=== PATIENT | female | born 1940 | race Caucasian/White ===

== ENCOUNTER 2020-08-09 12:02 | Outpatient (REF) | payer MEDICARE, SELFPAY ==
--- NOTE | ~2020-08-09 | MM_ITS ---
EXAMINATION: MM SCREENING DIGITAL BREAST TOMOSYNTHESIS, LEFT CLINICAL INFORMATION: Right mastectomy 2007. Due for yearly. COMPARISON: Mammography: 08/05/2018, 07/29/2018, 05/14/2017, 03/20/2015 TECHNIQUE: Digital breast tomosynthesis is performed in both the craniocaudal and mediolateral oblique views along with computer-aided detection (CAD). Synthesized 2D images are generated from the tomosynthesis. Additional left CC and left exaggerated CC views are provided. Exam optimized to patient capabilities, patient in wheelchair. FINDINGS: There are scattered areas of fibroglandular density (ACR BI-RADS breast composition Category b). Breast tissue composition borders on heterogeneously dense. There is no developing density or interval mass or architectural abnormality. Prominent venous drainage upper left breast and axilla is stable from prior studies. Skin contours are smooth. No skin thickening or coarsening of the Jesse's ligaments. No adenopathy. There are numerous punctate and coarse round and rim calcifications as well as vascular calcifications again seen. There are new loosely grouped round calcifications mid central 12:00 position for which patient will be recalled for additional imaging with magnification views. MM/MM tomosynthesis screening LT IMPRESSION: New loosely grouped round calcifications mid central 12:00 position. ASSESSMENT: BI-RADS 0: Incomplete - Need Additional Imaging Evaluation RECOMMENDATION: 1. Additional views of the left breast (magnification CC, magnification ML). 2. Radiology department staff will contact the patient for additional imaging. This patient's information was entered into a reminder system with a target due date for their next mammogram.
== END 2020-08-09 12:03 | disposition home or self-care (01) ==
LOC: HO.MAMMO 12:02
PROVIDERS: PCP Internal Medicine; Visit Provider Internal Medicine
DX: Z12.31 Encounter for screening mammogram for malignant neoplasm of breast (principal)
CPT/HCPCS: 77063; 77067

== ENCOUNTER 2020-08-22 14:47 | Outpatient (REF) | payer MEDICARE, SELFPAY ==
--- NOTE | ~2020-08-22 | MM_ITS ---
EXAMINATION: MM DIAGNOSTIC DIGITAL MAMMOGRAPHY, LEFT CLINICAL INFORMATION: Recall from screening for new loosely grouped calcifications mid central 12:00 left breast. Prior history right mastectomy for breast cancer 2007. COMPARISON: Mammography: 08/09/2020, 08/05/2018 (diagnostic), 03/31/2018. TECHNIQUE: Digital mammography is performed in the following views: Magnification CC, magnification ML. FINDINGS: There are scattered areas of fibroglandular density (ACR BI-RADS breast composition Category b). Breast tissue composition borders on heterogeneously dense. The additional views confirm loosely grouped calcifications central 12:00 position mid depth, over 10 in number. These represent new finding from prior magnification views 2018. Stereotactic sampling is recommended. Results and recommendation are discussed with the patient and her daughter at time of visit. Stereotactic sampling is recommended. If patient is unable to lie prone, sampling could be performed at local outside facility using upright stereotactic unit. Results and recommendation called to office ([facility]) for Dr. Arnold on 08/22/2020. MM/MM added views LT IMPRESSION: New calcifications central 12:00 left breast mid depth. ASSESSMENT: BI-RADS 4: Suspicious RECOMMENDATION: Stereotactic biopsy left breast calcifications. This patient's information was entered into a reminder system with a target due date for their next mammogram.
== END 2020-08-22 14:48 | disposition home or self-care (01) ==
LOC: HO.MAMMO 14:47
PROVIDERS: Visit Provider Internal Medicine
DX: R92.1 Mammographic calcification found on diagnostic imaging of breast (principal)
CPT/HCPCS: 77065

== ENCOUNTER → 2020-09-16 08:12 | Outpatient (BNVA) | payer MEDICARE, SELFPAY | PROVIDERS: PCP Internal Medicine; Visit Provider Surgery | DX: D05.12 Intraductal carcinoma in situ of left breast (principal); I20.8 Other forms of angina pectoris | CPT/HCPCS: 99202 ==

== ENCOUNTER 2020-10-01 11:30 | Inpatient (IN) | payer MEDICARE, SELFPAY ==
[2020-09-26 13:41] VITALS: BP 128/60; PULSE 70; RESP 20; O2SAT 95; BMI 35.1
--- NOTE | 2020-09-26 14:01 | P.CONAN_ITS ---
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) Breast calcification, left (Acute) Past Medical History Medical History Angina pectoris Aortic stenosis Arthritis Back pain Breast calcification, left CHF (congestive heart failure) Chronic renal insufficiency COVID-19 vaccine series completed Diabetes Ductal carcinoma in situ (DCIS) of breast Elevated cholesterol GERD (gastroesophageal reflux disease) History of atrial fibrillation History of snoring HTN (hypertension) Transfusion of blood product refused for jehovah's witness reason Family History Family history of problems with anesthesia: No Surgical History Surgical History Hx of coronary angioplasty Hx of right mastectomy History of Problems with Anesthesia: No Social History Social History Are you a primary pet care worker to a significant other at home: No Do you presently have visiting nurse or other home services: No Patient Tobacco Use Status: Never used Tobacco Use of substances other than those prescribed or required for medical reasons: No Have you been hit, kicked, punched, or otherwise hurt by someone within the past year? If so, by whom?: No Are you DNR?: Yes Advance Directives: Yes Advance Directives Information Provided: Yes Advance Directives on File: Yes Advance Directives Date on File: 09/26/20 Recently lost weight without trying: No Eating poorly because of decreased appetite: No Nutrition Risks: Surgical patient >75years Poor oral hygiene: No Narrative Narrative: No recent illness. Rare cough and nasal congestion d/t allergies. No CP/SOB with minimal activity. Mostly in wheel chair d/t back pain. Euvolemic at PAT Meds Allergies Allergy/AdvReac Type Severity Reaction Status Date / Time lisinopril [LISINOPRIL] AdvReac Intermediate Cough Verified 09/25/20 10:11 Chphwll-Dgt-Gyw Reductase AdvReac Intermediate extreme Verified 09/25/20 10:10 Inhibitor muscle [[id number] REDUCTASE pain in INHIBITOR] hips and legs Home Medications Medication Instructions Recorded Confirmed Last Taken Type allopurinol 300 mg tablet 300 mg PO DAILY 09/16/20 09/25/20 Unknown History aspirin 81 mg tablet,delayed 81 mg PO DAILY 09/16/20 09/25/20 Unknown History release atorvastatin 10 mg tablet 10 mg PO DAILY 09/16/20 09/25/20 Unknown History blood sugar diagnostic (OneTouch #10 ea 09/16/20 09/16/20 Unknown History Ultra Test) fluticasone propionate 50 1 spray INTRANASAL BID 09/16/20 09/25/20 Unknown History mcg/actuation nasal spray,suspension furosemide 40 mg tablet 40 mg PO BID 09/16/20 09/25/20 Unknown History insulin glargine 100 unit/mL (3 40 unit SUBCUT BEDTIME 09/16/20 09/25/20 Unknown History mL) subcutaneous pen (Lantus Solostar U-100 Insulin) insulin lispro 100 unit/mL 6 - 10 unit SUBCUT TID 09/16/20 09/25/20 Unknown History subcutaneous pen (Humalog KwikPen (U-100) Insulin) isosorbide mononitrate 60 mg 60 mg PO QAM 09/16/20 09/25/20 10/01/20 06:00 History tablet,extended release 24 hr lancets (Catalyst Repository SystemsTouch UltraSoft #100 ea 09/16/20 09/16/20 Unknown History Lancets) losartan 25 mg tablet 25 mg PO DAILY 09/16/20 09/25/20 Unknown History metoprolol tartrate 100 mg tablet 100 mg PO BID 09/16/20 09/25/20 10/01/20 06:00 History nitroglycerin 0.4 mg sublingual 0.4 mg SUBLINGUAL NEEDED PRN 09/16/20 09/25/20 Unknown History tablet pen needle, diabetic 31 gauge x #50 ea 09/16/20 09/16/20 Unknown History 3/16 (BD Ultra-Fine Mini Pen Needle) pen needle, diabetic 32 gauge x #50 ea 09/16/20 09/16/20 Unknown History (BD Ultra-Fine Sylwia Pen Needle) coenzyme Q10 200 mg capsule (Co 200 mg PO DAILY 09/25/20 09/25/20 Unknown History Q-10) Exam Exam Date and Time: September 26, 2020 1401 Height,Weight and Vital Signs: Vital Signs Pulse Rate 70 09/26/20 13:41 Respiratory Rate 09/26/20 13:41 Blood Pressure 128/60 09/26/20 13:41 Pulse Oximetry 95 09/26/20 13:41 Pulse Rate 70 09/26/20 13:41 Respiratory Rate 20 09/26/20 13:41 Blood Pressure 128/60 09/26/20 13:41 Pulse Oximetry 95 09/26/20 13:41 Pertinent Lab Results Pertinent Lab Results: Lab Results 09/26/20 09/26/20 Range/Units 14:58 14:58 WBC 8.1 (4.8-10.8) X10*3/uL RBC 3.85 L (4.20-5.50) X10*6/uL Hgb 11.8 L (12.0-16.0) g/dl Hct 34.8 L (37-47) % MCV 90.4 (80-98) fL MCH 30.6 (27.0-33.0) pg MCHC 33.9 (31.0-35.0) g/dl RDW 15.0 (11.0-16.0) % Plt Count 191 (160-400) X10*3/uL MPV 10.6 (9.4-12.3) fL Absolute Nucleated RBC 0.000 (0.0-0.012) X10*3/uL Nucleated RBC % (auto) 0.0 (0.0-0.2) /100WBC Sodium 139 (135-145) mmol/L Potassium 4.1 (3.3-5.1) mmol/L Chloride 103 (96-108) mmol/L Carbon Dioxide 27 (22-29) mmol/L Anion Gap 13 (12-20) BUN 46 H (9-16) mg/dL Creatinine 1.19 (0.5-1.4) mg/dL Estim Creat Clear Calc 38.6 Estimated GFR 44 Random Glucose 96 (60-115) mg/dL Calcium 9.7 (8.4-10.2) mg/dL Narrative Narrative: EKG 09/2020 afib Low voltage QRS Poor R wave progression ECHO 04/2019 LA is moderately to severely dilated Moderate to severe mitral annular calcification Miltral valve appears moderately thickened - reduced mobility of leaflets without any significant stenosis Trace to mild mitral regurg Aortic valve is trileaflet, moderately calcified Moderate aortic stenosis: mean gradient = 18, valve area = 1.1 Trace aoritc regurg LV size is normal LV systolic function is normal LVEF 55-60% No RWMA Unable to assess diastolic function d/t afib Airway Mallampati Class: I TM Dist: >3cm Neck ROM: Full Loose/Missing/Broken Teeth: Yes (Molars pulled, 1 x silver cap left) Heart: irreg, +M Lungs: CTAB Other: Euvolemic, no edema, denies orthopnea Assessment and Plan Assessment Anesthesia Assessment: Anesthesia Plan Discussed and PAT Visit Final Anesthetic Review Family History of Problems with Anesthesia: No History of Problems with Anesthesia: No Documented by User: Viri Rodriguez MD 10/01/20 10:08 [facility] Past Medical History Medical History Angina pectoris Aortic stenosis Arthritis Back pain Breast calcification, left CHF (congestive heart failure) Chronic renal insufficiency COVID-19 vaccine series completed Diabetes Ductal carcinoma in situ (DCIS) of breast Elevated cholesterol GERD (gastroesophageal reflux disease) History of atrial fibrillation History of snoring HTN (hypertension) Transfusion of blood product refused for jehovah's witness reason Family History Family history of problems with anesthesia: Unobtainable Surgical History Surgical History Hx of coronary angioplasty Hx of right mastectomy Social History Social History Are you a primary pet care worker to a significant other at home: No Do you presently have visiting nurse or other home services: No Patient Tobacco Use Status: Never used Tobacco Use of substances other than those prescribed or required for medical reasons: No Have you been hit, kicked, punched, or otherwise hurt by someone within the past year? If so, by whom?: No Are you DNR?: Yes Advance Directives: Yes Advance Directives Information Provided: Yes Advance Directives on File: Yes Advance Directives Date on File: 09/26/20 Recently lost weight without trying: No Eating poorly because of decreased appetite: No Nutrition Risks: Surgical patient >75years Poor oral hygiene: No Narrative Narrative: No recent illness. Rare cough and nasal congestion d/t allergies. No CP/SOB with minimal activity. Mostly in wheel chair d/t back pain. Euvolemic at [facility] Cardiac assessment from [facility] read. Pt not a candidate for CABG and is optimized with medical management. Will proceed with knowledge of increased cardiac risk. Meds Allergies Allergy/AdvReac Type Severity Reaction Status Date / Time lisinopril [LISINOPRIL] AdvReac Intermediate Cough Verified 09/25/20 10:11 Lwjbyhk-Zxd-Xtq Reductase AdvReac Intermediate extreme Verified 09/25/20 10:10 Inhibitor muscle [[id number] REDUCTASE pain in INHIBITOR] hips and legs Home Medications Medication Instructions Recorded Confirmed Last Taken Type allopurinol 300 mg tablet 300 mg PO DAILY 09/16/20 09/25/20 Unknown History aspirin 81 mg tablet,delayed 81 mg PO DAILY 09/16/20 09/25/20 Unknown History release atorvastatin 10 mg tablet 10 mg PO DAILY 09/16/20 09/25/20 Unknown History blood sugar diagnostic (Catalyst Repository SystemsTouch #10 ea 09/16/20 09/16/20 Unknown History Ultra Test) fluticasone propionate 50 1 spray INTRANASAL BID 09/16/20 09/25/20 Unknown History mcg/actuation nasal spray,suspension furosemide 40 mg tablet 40 mg PO BID 09/16/20 09/25/20 Unknown History insulin glargine 100 unit/mL (3 40 unit SUBCUT BEDTIME 09/16/20 09/25/20 Unknown History mL) subcutaneous pen (Lantus Solostar U-100 Insulin) insulin lispro 100 unit/mL 6 - 10 unit SUBCUT TID 09/16/20 09/25/20 Unknown History subcutaneous pen (Humalog KwikPen (U-100) Insulin) isosorbide mononitrate 60 mg 60 mg PO QAM 09/16/20 09/25/20 10/01/20 06:00 History tablet,extended release 24 hr lancets ([employer] UltraSoft #100 ea 09/16/20 09/16/20 Unknown History Lancets) losartan 25 mg tablet 25 mg PO DAILY 09/16/20 09/25/20 Unknown History metoprolol tartrate 100 mg tablet 100 mg PO BID 09/16/20 09/25/20 10/01/20 06:00 History nitroglycerin 0.4 mg sublingual 0.4 mg SUBLINGUAL NEEDED PRN 09/16/20 09/25/20 Unknown History tablet pen needle, diabetic 31 gauge x #50 ea 09/16/20 09/16/20 Unknown History 3/16 (BD Ultra-Fine Mini Pen Needle) pen needle, diabetic 32 gauge x #50 ea 09/16/20 09/16/20 Unknown History (BD Ultra-Fine Sylwia Pen Needle) coenzyme Q10 200 mg capsule (Co 200 mg PO DAILY 09/25/20 09/25/20 Unknown History Q-10) Exam Airway Mallampati Class: II Assessment and Plan Assessment Anesthesia Assessment: Chart Reviewed Final Anesthetic Review Family History of Problems with Anesthesia: Unobtainable NPO: Yes ASA Class: III Final Preanesthetic Review: Meds/Allgs Chart Reviewed, Consent Obtained/Reviewed and Anes Risks/Benef Reviewed Patient Risk: Intermediate Procedure Risk: Low Anesthetic Plan Anesthetic Plan: GA Disposition: Standard PACU
[2020-09-26 15:14] LABS: Hematocrit 34.8 % (37-47); Hemoglobin 11.8 g/dl (12.0-16.0); Mean Corpuscular HGB Conc 33.9 g/dl (31.0-35.0); Mean Corpuscular Hemoglobin 30.6 pg (27.0-33.0); Mean Corpuscular Volume 90.4 fL (80-98); Mean Platelet Volume 10.6 fL (9.4-12.3); Platelet Count 191 X10*3/uL (160-400); Red Blood Count 3.85 X10*6/uL (4.20-5.50); White Blood Count 8.1 X10*3/uL (4.8-10.8)
[2020-09-26 15:38] LABS: Anion Gap 13 (12-20); Blood Urea Nitrogen 46 mg/dL (9-16); Calcium 9.7 mg/dL (8.4-10.2); Carbon Dioxide 27 mmol/L (22-29); Chloride 103 mmol/L (96-108); Creatinine Clr Calc Pharmacy 38.6; Estimated Glomerular Filt Rate 44; Glucose Random 96 mg/dL (60-115); Potassium 4.1 mmol/L (3.3-5.1); Sodium 139 mmol/L (135-145)
[2020-10-01] VITALS (19 sets, daily range): BP systolic 90–141; BP diastolic 32–80; PULSE 64–75; RESP 16–20; TEMP 36.3–36.6; O2SAT 94–100; BMI 35.1
[2020-10-01 08:22] LABS: Glucose, Whole Blood 114 mg/dL (60-115)
[2020-10-01 08:27] LABS: COVID-19 Test Negative (Negative)
[2020-10-01] MEDS: Lactated Ringers 1,000 ML 50 ML IVCONT (08:28)
--- NOTE | 2020-10-01 09:03 | MHC.SHP ---
Pre-Procedural Eval Section A Date of Service: 10/01/20 Section B Chief Complaint: Ductal carcinoma in situ (DCIS) of breast Allergies: Allergies Allergy/AdvReac Type Severity Reaction Status Date / Time lisinopril [LISINOPRIL] AdvReac Intermediate Cough Verified 09/25/20 10:11 Dyneyfm-Nfh-Eve Reductase AdvReac Intermediate extreme Verified 09/25/20 10:10 Inhibitor muscle [[id number] REDUCTASE pain in INHIBITOR] hips and legs Plan I have reviewed the history and physical and performed a pertinent physical examination on my patient. No changes have occurred unless specified.
--- NOTE | 2020-10-01 11:14 | W.PM.OPN ---
Operative Note Operative Note Date of Service: 10/01/20 Narrative: Preop diagnosis: DCIS, left breast Postop diagnosis: DCIS left breast Procedure: Simple mastectomy, left breast Surgeon: Jeremy Garcia MD retail event and sales assistant: TENISHA Preston The patient is an 79-year-old female who had undergone stereotactic biopsy in [place] recently for left breast calcifications. The path report had shown a DCIS of the left breast. She was therefore referred to me. I explained to her her options of lumpectomy followed possibly by radiation, and simple mastectomy. She had a previous mastectomy on the right breast for breast cancer in the past. She wanted to proceed with simple mastectomy. She understood technique of the procedure as well as the risks, benefits, and alternatives She was brought to the operating room and placed supine. She was placed under general anesthesia via laryngeal mask airway. The left breast was prepped draped in the usual sterile fashion. A surgical time-out was done. The patient received cefazolin 2 g IV preoperatively. I made an elliptical incision on the skin of the breast that included the nipple-areolar complex, with skin ellipse talar just to make sure that the resulting defect could be closed without tension, and that the previous biopsy site was included. The lateral and the lips medial to the mid axillary line. The incision was then deepened with electrocautery. We cauterized some subdermal veins that were encountered for hemostasis. I then used Cecilio skin retractors to lift up the superior flap in a direction perpendicular to the chest wall. With the electrocautery device, the breast tissue was dissected away from 1 end of the incision to the other, making sure that we weredeveloping flaps that were approximately about 5-10 mm thick. There seemed to also be a bloodless plane becoming evident as we proceeded with this dissection of the planes between the subcutaneous tissue and the breast itself. We proceeded to continue to deepen this dissection all the way to the pectoralis major with care being taken as to coagulate vessels as they were encountered to minimize blood loss. I then proceeded to identify the limits of dissection which would be the lateral border of the mid sternum medially, the anterior border of the latissimus dorsi laterally, the 2nd rib superiorly as well as the inframammary crease inferiorly. I therefore proceeded to continue to develop the superior flap all the way to the medial limit, and superior limit as well. I then proceeded to develop the lower flaps proceeding from the medial and the lateral and. This was achieved in the same fashion as earlier done with the superior flap. I proceeded to continue to deepen the dissection until the inframammary crease was reached. Both skin envelopes had therefore been completely developed superiorly as well as inferiorly. At this point therefore I was using the Gilmore retractors for retraction and had removed the the skin retractors. I proceeded to lift off the breast from the pectoralis major starting from the medial aspect. I developed this plane using electrocautery, lifting the breast tissue off of the muscle, including the plane of the fascia itself with the breast tissue. I developed this plane superficial to the muscle fibers of the pectoralis using electrocautery and blunt dissection, making sure that we were coagulating quantitative researcher vessels along the way. I developed this plane of dissection from medial and inferior going more laterally and superiorly. I continued with this dissection until I was able to reach the lateral edge of the pectoralis muscle. This was therefore the limit of our lateral dissection. I proceeded to therefore continue developed the plane from superior also above the fibers of the pectoralis major. I continued with this manner of dissection, using electrocautery as well as blunt dissection with the tip of the finger to lift up the breast tissue along with the fascia off of the pectoralis. This was continued all the way laterally until we reached the lateral margin of the pectoralis as well. We then proceeded to connect our planes from inferior to superior at the edge of the pectoralis until the entire breast was completely . I marked the medial collateral aspects of the breast for orientation We then proceeded to observe from a stasis. There was note of some oozing on the muscle fibers of the pectoralis so we had to carefully control this with electrocautery to make sure that we had good hemostasis. I copiously irrigated as well. We observed for hemostasis. Once hemostasis was confirmed I proceeded to position a #7 FREDERICK drain along the inferior flap going medially to the superior flap. This drain came out through a small stab incision in the lateral part of the inferior flap This drain was secured to the skin with nylon 3-0 sutures. We then proceeded to reappose the subcutaneous layer and subdermal layer with interrupted simple Dexon 3-0 sutures. Skin closure was achieved with a running Dexon 4-0 subcuticular running stitch. The incisionwas then infiltrated with Marcaine 0.5% for postop analgesia. Dressings were applied along with a binder and the procedure was completed. The patient tolerated procedure well with no complication noted. Initial and final counts of sponges and instruments were correct. Estimated blood loss about 75 cc. The patient was then extubated without difficulty and transferred to the recovery room with stable vital signs.
--- NOTE | 2020-10-01 11:24 | P.BOP_ITS ---
Brief Operative Note Date of Service: 10/01/20 Pre-op diagnosis: DCIS left breast Post-op diagnosis: same Procedure: Simple mastectomy left breast Surgeon: Jeremy Garcia MD Anesthesia: GLMA Was an Ammonia Print Operator used for this Procedure?: Yes Ammonia Print Operator: Miley Preston Estimated blood loss (mL): 75 Pathology: other (Left breast) Condition: stable Disposition: PACU
--- NOTE | 2020-10-01 12:35 | P.CONIM_ITS ---
History of Present Illness Data of Consult Service Date: 10/01/20 Requesting physician: Jeremy Garcia Primary Care Provider: Radha Damon MD HPI Reason for consult: Medical management 79 year old women admitted by general surgery and is status post left breast mastectomy. She had previous right breast mastectomy. 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 She was in post-op recovery unit. She had very minimal complaints of pain. Her blood pressure was on the softer side but improved after IV fluids. Review of Systems Review of Systems: Denies any recent fever chills or decrease in appetite respiratory denies any shortness of breath coverage production cardiovascular denied gastrointestinal denies any dysphagia abdominal pain nausea vomiting or diarrhea genitourinary denies any dysuria frequency or hematuria musculoskeletal denies any joint pain or swelling neuropsych denies any weakness or seizures all other systems reviewed are negative [facility] Medical History Angina pectoris Aortic stenosis Arthritis Back pain Breast calcification, left CHF (congestive heart failure) Chronic renal insufficiency COVID-19 vaccine series completed Diabetes Ductal carcinoma in situ (DCIS) of breast Elevated cholesterol GERD (gastroesophageal reflux disease) History of atrial fibrillation History of snoring HTN (hypertension) Transfusion of blood product refused for tenriism reason Pertinent family history: Unknown patient unable to give full hx as she was just post op Surgical History Hx of coronary angioplasty Hx of right mastectomy Social History Are you a primary director career services to a significant other at home: No Do you presently have visiting nurse or other home services: No Patient Tobacco Use Status: Never used Tobacco Use of substances other than those prescribed or required for medical reasons: No Have you been hit, kicked, punched, or otherwise hurt by someone within the past year? If so, by whom?: No Are you DNR?: Yes Advance Directives: Yes Advance Directives Information Provided: Yes Advance Directives on File: Yes Advance Directives Date on File: 09/26/20 Recently lost weight without trying: No Eating poorly because of decreased appetite: No Nutrition Risks: Surgical patient >75years Poor oral hygiene: No Meds Allergies Allergy/AdvReac Type Severity Reaction Status Date / Time lisinopril [LISINOPRIL] AdvReac Intermediate Cough Verified 09/25/20 10:11 Kjkoldz-Gyk-Bnl Reductase AdvReac Intermediate extreme Verified 09/25/20 10:10 Inhibitor muscle [[id number] REDUCTASE pain in INHIBITOR] hips and legs Active Medications: Current Medications Generic Name Dose Route Start Last Admin Trade Name Freq PRN Reason Stop Dose Admin Acetaminophen 650 mg 10/01/20 11:29 Acetaminophen 325 Mg Tablet PO Q6H PRN Pain, Mild (Pain Scale 1-3) Al Hydroxide/Mg Hydroxide 30 ml 10/01/20 11:29 Magnesium Hydrox/Alum Hydrox 30 Ml Oral.Susp PO Q4H PRN Heartburn/Nausea Allopurinol 300 mg 10/02/20 09:00 Allopurinol 300 Mg Tablet PO DAILY DONTRELL Dextrose 25 gm 10/01/20 11:35 Dextrose 50 % 25 Gm/50 Ml Vial IVPUSH Q15M PRN per Hypoglycemia Standing Ord. Protocol Docusate Sodium 100 mg 10/01/20 11:29 Docusate Sodium 100 Mg Capsule PO DAILY PRN Constipation Fentanyl 50 mcg 10/01/20 10:10 Fentanyl Citrate/Pf 100 Mcg/2 Ml Vial IVPUSH Q5M PRN Pain, Severe (Pain Scale 7-10) Protocol Fentanyl 25 mcg 10/01/20 10:10 Fentanyl Citrate/Pf 100 Mcg/2 Ml Vial IVPUSH Q5M PRN Pain, Moderate (Pain Scale 4-6 Protocol Fluticasone Propionate 1 spray 10/01/20 21:00 Fluticasone Propionate Nasal 16 Gm [place] NOSTRIL-B BID DONTRELL Glucose 15 gm 10/01/20 11:35 Glucose Gel 15 Gm Gel..Gram. PO Q15M PRN per Hypoglycemia Standing Ord. Protocol Heparin Sodium (Porcine) 5,000 unit 10/02/20 11:30 Heparin Sodium,Porcine 5,000 Unit/Ml Vial SUBCUT Q12H DONTRELL Lactated Ringer's 1,000 mls @ 50 mls/hr 10/01/20 07:45 10/01/20 08:28 Lr IVCONT 50 mls/hr .Q20H DONTRELL Administration Sodium Chloride 1,000 mls @ 80 mls/hr 10/01/20 11:30 Ns IVCONT .[id number] [facility] Insulin Human Lispro 0 unit 10/01/20 16:30 Insulin Lispro 100 Unit/Ml 3 Ml Vial SUBCUT QIDACHS [facility] Protocol Isosorbide Mononitrate 60 mg 10/01/20 11:45 Isosorbide Mononitrate 60 Mg Tab.Er.24h PO DAILY [facility] Protocol Losartan Potassium 25 mg 10/02/20 09:00 Losartan Potassium 25 Mg Tablet PO DAILY [facility] Protocol Metoprolol Tartrate 100 mg 10/01/20 21:00 Metoprolol Tartrate 100 Mg Tablet PO BID [facility] Protocol Morphine Sulfate 2 mg 10/01/20 10:13 Morphine Sulfate 2 Mg/Ml Cartridge IVPUSH Q5M PRN Pain, Moderate (Pain Scale 4-6 Protocol Morphine Sulfate 4 mg 10/01/20 11:29 Morphine Sulfate 2 Mg/Ml Cartridge IVPUSH Q4H PRN Pain, Severe (Pain Scale 7-10) Protocol Nitroglycerin 0.4 mg 10/01/20 11:36 Nitroglycerin 0.4 Mg Tab.Subl SUBLINGUAL Q5M PRN Chest Pain Ondansetron HCl 4 mg 10/01/20 11:29 Ondansetron Hcl 4 Mg/2 Ml Vial IVPUSH Q8H PRN Nausea and Vomiting Oxycodone HCl 10 mg 10/01/20 10:10 Oxycodone Hcl Immed Release 5 Mg Tablet PO ONCE PRN Pain, Severe (Pain Scale 7-10) Oxycodone HCl 5 mg 10/01/20 10:10 Oxycodone Hcl Immed Release 5 Mg Tablet PO ONCE PRN Pain, Severe (Pain Scale 7-10) Oxycodone HCl 5 mg 10/01/20 11:29 Oxycodone Hcl Immed Release 5 Mg Tablet PO Q4H PRN Pain, Moderate (Pain Scale 4-6 Sodium Chloride 3 ml 10/01/20 16:00 0.9 % Sodium Chloride Flush 3 Ml Syringe IVFLUSH QSHIFT [facility] Home Medications Medication Instructions Recorded Confirmed Last Taken Type allopurinol 300 mg tablet 300 mg PO DAILY 09/16/20 09/25/20 Unknown History aspirin 81 mg tablet,delayed 81 mg PO DAILY 09/16/20 09/25/20 Unknown History release atorvastatin 10 mg tablet 10 mg PO DAILY 09/16/20 09/25/20 Unknown History blood sugar diagnostic (OneTouch #10 ea 09/16/20 09/16/20 Unknown History Ultra Test) fluticasone propionate 50 1 spray INTRANASAL BID 09/16/20 09/25/20 Unknown History mcg/actuation nasal spray,suspension furosemide 40 mg tablet 40 mg PO BID 09/16/20 09/25/20 Unknown History insulin glargine 100 unit/mL (3 40 unit SUBCUT BEDTIME 09/16/20 09/25/20 Unknown History mL) subcutaneous pen (Lantus Solostar U-100 Insulin) insulin lispro 100 unit/mL 6 - 10 unit SUBCUT TID 09/16/20 09/25/20 Unknown History subcutaneous pen (Humalog KwikPen (U-100) Insulin) isosorbide mononitrate 60 mg 60 mg PO QAM 09/16/20 09/25/20 10/01/20 06:00 History tablet,extended release 24 hr lancets (OneTouch UltraSoft #100 ea 09/16/20 09/16/20 Unknown History Lancets) losartan 25 mg tablet 25 mg PO DAILY 09/16/20 09/25/20 Unknown History metoprolol tartrate 100 mg tablet 100 mg PO BID 09/16/20 09/25/20 10/01/20 06:00 History nitroglycerin 0.4 mg sublingual 0.4 mg SUBLINGUAL NEEDED PRN 09/16/20 09/25/20 Unknown History tablet pen needle, diabetic 31 gauge x #50 ea 09/16/20 09/16/20 Unknown History 3/16 (BD Ultra-Fine Mini Pen Needle) pen needle, diabetic 32 gauge x #50 ea 09/16/20 09/16/20 Unknown History 5/32 (BD Ultra-Fine [place]ia Pen Needle) coenzyme Q10 200 mg capsule (Co 200 mg PO DAILY 09/25/20 09/25/20 Unknown History Q-10) Physical Exam Vital Signs and Narrative: Vital Signs: Last Vital Signs Temp 97.4 F 10/01/20 11:33 Pulse 68 10/01/20 12:18 Resp 18 10/01/20 12:18 BP 99/35 L 10/01/20 12:18 Pulse Ox 95 10/01/20 12:18 Body Mass Index 35.1 Appearing in no acute distress head is normocephalic atraumatic eyes pupils are PERRLA sclera is anicteric mouth throat mucous membranes are intact and moist neck is supple no lymphadenopathy, no JVD noted lung sounds are clear to auscultation heart regular rate rhythm, clear S1, S2 positive bowel sounds, abdomen is soft, nontender neuro patient is alert x3, no focal deficits Results Labs CBC and Chem 7: 09/26/20 14:58 09/26/20 14:58 Labs: Laboratory Results - last 24 hr 10/01/20 10/01/20 08:03 08:18 POC Glucose 114 COVID-19 (ADELE) Negative COVID-19 Clin Com See Note Assessment and Plan (1) Angina at rest: Status: Acute 79 year old women s/p left breast mastectomy secondary to ductal carcinoma in situ Mastectomy management as per surgical team pain control Hypertension Stable blood continue losartan Diabetes sliding scale ADA diet Angina Continue BB DVT prophylaxis with heparin
[2020-10-01] MEDS: oxyCODONE HCl Immed Release 5 MG TABLET PO (12:41)
[2020-10-01] MEDS: Morphine Sulfate 2 MG/ML CARTRIDGE IVPUSH (12:41)
--- NOTE | 2020-10-01 14:34 | PM.EVENT ---
Event Note Date of Service: 10/01/20 Event Note: Seen postop - she underwent simple mastectomy earlier for DCIS Says she is comfortable Looks well Seems to have good pain control Dressings dry FREDERICK drain - with thick, red blood, about 20 cc Stable vital signs Doing well postop likely home jason if with good pain control will need VNA Daughter Magdalena updated [phone]
--- NOTE | 2020-10-01 14:55 | PM.EVENT ---
Event Note Date of Service: 10/01/20 Event Note: addendum to consult note by ESME Wang, 10/01/20: I interviewed and examined the patient. I discussed their presentation and management with the mid-level provider. I reviewed the consult and agree with the documentation, with the following additions and corrections: 79yo F on surgical service POD#0 simple mastectomy for DCIS L breast. Has hx of R mastectomy for CA. PMHx hx for AF not on AC due to GI bleed hx, CAD s/p PCI x3, aortic stenosis, CHF, CKD3, DM2, HLD, HTN . Vital Signs Pulse Rate 70 09/26/20 13:41 Respiratory Rate 20 09/26/20 13:41 Blood Pressure 128/60 09/26/20 13:41 Pulse Oximetry 95 09/26/20 13:41 Temperature 98 F 10/01/20 14:30 Pulse Rate 70 10/01/20 14:48 Respiratory Rate 20 10/01/20 14:30 Blood Pressure 115/56 L 10/01/20 14:48 Pulse Oximetry 97 10/01/20 14:30 pt in NAD, lungs clear, RRR 3/6 systolic murmur at base, abd soft, no ext edema # CAD # CHF # HTN - continue furosemide, Imdur, metoprolol, losartan, statin, ASA when OK with surgical team # CKD3 - monitor SCr, avoid nephrotoxins # DM2 - correction-dose lispro, glargine once eating
[2020-10-01 16:58] LABS: Glucose, Whole Blood 215 mg/dL (60-115)
[2020-10-01] MEDS: 0.9 % Sodium Chloride 1,000 ML 80 ML IVCONT (17:45)
[2020-10-01] MEDS: Insulin Lispro 100 UNIT/ML 3 ML VIAL SUBCUT ×2 (17:45→22:18)
[2020-10-01] MEDS: 0.9 % Sodium Chloride Flush 3 ML SYRINGE IVFLUSH ×2 (17:48→22:20)
--- NOTE | 2020-10-01 18:11 | PC.NURSE ---
1643 patients blood pressure 90/80. Patient asymptomatic. Dr. Domingo made aware. Order placed for 1L NS to be given.
[2020-10-01 21:28] LABS: Glucose, Whole Blood 340 mg/dL (60-115)
[2020-10-01] MEDS: Fluticasone Propionate Nasal 16 GM SPRAY 1 SPRAY NOSTRIL-B (22:19)
[2020-10-02] VITALS (7 sets, daily range): BP systolic 94–138; BP diastolic 44–62; PULSE 66–76; RESP 16–18; TEMP 36.4–36.9; O2SAT 93–100
[2020-10-02] MEDS: 0.9 % Sodium Chloride 1,000 ML 80 ML IVCONT (05:07)
[2020-10-02 06:23] LABS: MANUAL DIFF FLAG NO
[2020-10-02 06:45] LABS: Basophils Percent Auto 0.2 % (0-2); Hematocrit 32.4 % (37-47); Hemoglobin 10.6 g/dl (12.0-16.0); Imm Gran Abs Auto 0.05 X10*3/uL (0.00-0.03); Imm Gran Pct Auto 0.5 % (0.0-0.4); Lymphocytes Absolute Auto 1.1 X10*3/uL (1.2-4.9); Lymphocytes Percent Auto 11.8 % (20-40); Mean Corpuscular HGB Conc 32.7 g/dl (31.0-35.0); Mean Corpuscular Hemoglobin 30.5 pg (27.0-33.0); Mean Corpuscular Volume 93.4 fL (80-98); Mean Platelet Volume 11.7 fL (9.4-12.3); Monocytes Absolute Auto 0.6 X10*3/uL (0.1-1.2); Monocytes Percent Auto 6.2 % (2-11); Neutrophils Absolute Auto 7.6 X10*3/uL (2.0-8.3); Neutrophils Percent Auto 81.3 % (45-73); Platelet Count 156 X10*3/uL (160-400); Red Blood Count 3.47 X10*6/uL (4.20-5.50); White Blood Count 9.3 X10*3/uL (4.8-10.8)
[2020-10-02 07:16] LABS: Anion Gap 14 (12-20); Blood Urea Nitrogen 45 mg/dL (9-16); Calcium 8.4 mg/dL (8.4-10.2); Carbon Dioxide 25 mmol/L (22-29); Chloride 102 mmol/L (96-108); Creatinine Clr Calc Pharmacy 37.7; Estimated Glomerular Filt Rate 42; Glucose Random 195 mg/dL (60-115); Sodium 136 mmol/L (135-145)
[2020-10-02 07:33] LABS: Glucose, Whole Blood 176 mg/dL (60-115)
--- NOTE | 2020-10-02 07:35 | PM.PNGS ---
Subjective Subjective Date of Service: 10/02/20 <Miley Preston PA-C - Last Filed: 10/02/20 07:41> 10/02/20 <Jeremy Garcia MD - Last Filed: 10/02/20 08:33> Interval history: Feels ok this morning. Having pain only when moving. Worried about blood sugars. <Miley Preston PA-C - Last Filed: 10/02/20 07:41> Physical Exam Vital Signs: Vital Signs: Last Vital Signs Temp 98.4 F 10/02/20 07:14 Pulse 70 10/02/20 07:14 Resp 18 10/02/20 07:14 BP 114/44 L 10/02/20 07:14 Pulse Ox 97 10/02/20 07:14 Body Mass Index 35.1 <Miley Preston PA-C - Last Filed: 10/02/20 07:41> Const: General: comfortable, no acute distress and alert <Miley Preston PA-C - Last Filed: 10/02/20 07:41> Orientation/consciousness: patient oriented x3 <Miley Preston PA-C - Last Filed: 10/02/20 07:41> Chest: Other: left mastectomy incision site clean, FREDERICK drain output serosanguineous <Miley Preston PA-C - Last Filed: 10/02/20 07:41> Resp: Effort & Inspection: normal respiratory effort <Miley Preston PA-C - Last Filed: 10/02/20 07:41> Cardio: Rate: regular rate <Miley Preston PA-C - Last Filed: 10/02/20 07:41> Skin: General skin exam: no rashes or lesions noted <Miley Preston PA-C - Last Filed: 10/02/20 07:41> Neuro: General: patient oriented x3 <KARTHIKEYAN Lopez Last Filed: 10/02/20 07:41> Extrem: General: Yes no clubbing, cyanosis or edema <KARTHIKEYAN Lopez Last Filed: 10/02/20 07:41> Procedures Date of Service Date of Service: 10/02/20 <Miley Preston PA-C - Last Filed: 10/02/20 07:41> Progress Note: A&P Assessment and plan (1) Ductal carcinoma in situ (DCIS) of breast: Status: Acute <Miley Preston PA-C - Last Filed: 10/02/20 07:41> (2) S/P mastectomy: Status: Acute <Miley Preston PA-C - Last Filed: 10/02/20 07:41> Assessment and Plan: No events overnight Good pain control She says she feels well FREDERICK drain with serosanguineous output Looks well Dressings dry Likely home later today or tomorrow Discussed with piano case and bench assembler regarding visiting nurse services Seen and examined - agree with TENISHA Preston <Jeremy Garcia MD - Last Filed: 10/02/20 08:33> Assessment and Plan: 79 year old female with DCIS left breast now POD #1 s/p left simple mastectomy. Doing well post op. Dressing c/d/i. FREDERICK drain with high serosanguineous output. Keep FREDERICK drain in place. AM labs reviewed. Likely discharge to home with VNA services tomorrow. Hospitalists following. <Miley Preston PA-C - Last Filed: 10/02/20 07:41> Fall Risk Details Current Medications: Current Medications Generic Name Dose Route Start Last Admin Trade Name Freq PRN Reason Stop Dose Admin Acetaminophen 650 mg 10/01/20 11:29 Acetaminophen 325 Mg Tablet PO Q6H PRN Pain, Mild (Pain Scale 1-3) Al Hydroxide/Mg Hydroxide 30 ml 10/01/20 11:29 Magnesium Hydrox/Alum Hydrox 30 Ml Oral.Susp PO Q4H PRN Heartburn/Nausea Allopurinol 300 mg 10/02/20 09:00 Allopurinol 300 Mg Tablet PO DAILY DONTRELL Dextrose 25 gm 10/01/20 11:35 Dextrose 50 % 25 Gm/50 Ml Vial IVPUSH Q15M PRN per Hypoglycemia Standing Ord. Protocol Docusate Sodium 100 mg 10/01/20 11:29 Docusate Sodium 100 Mg Capsule PO DAILY PRN Constipation Fluticasone Propionate 1 spray 10/01/20 21:00 10/01/20 22:19 Fluticasone Propionate Nasal 16 Gm [place] NOSTRIL-B 1 spray BID DONTRELL Administration Glucose 15 gm 10/01/20 11:35 Glucose Gel 15 Gm Gel..Gram. PO Q15M PRN per Hypoglycemia Standing Ord. Protocol Heparin Sodium (Porcine) 5,000 unit 10/02/20 11:30 Heparin Sodium,Porcine 5,000 Unit/Ml Vial SUBCUT Q12H [facility] Sodium Chloride 1,000 mls @ 80 mls/hr 10/01/20 11:30 10/02/20 05:07 Ns IVCONT 80 mls/hr .[id number] [facility] Administration Insulin Human Lispro 0 unit 10/01/20 16:30 10/01/20 22:18 Insulin Lispro 100 Unit/Ml 3 Ml Vial SUBCUT 2 unit QIDACHS [facility] Administration Protocol Isosorbide Mononitrate 60 mg 10/01/20 11:45 10/01/20 14:48 Isosorbide Mononitrate 60 Mg Tab.Er.24h PO Not Given DAILY [facility] Protocol Losartan Potassium 25 mg 10/02/20 09:00 Losartan Potassium 25 Mg Tablet PO DAILY [facility] Protocol Metoprolol Tartrate 100 mg 10/01/20 21:00 10/01/20 22:16 Metoprolol Tartrate 100 Mg Tablet PO Not Given BID [facility] Protocol Morphine Sulfate 4 mg 10/01/20 11:29 Morphine Sulfate 2 Mg/Ml Cartridge IVPUSH Q4H PRN Pain, Severe (Pain Scale 7-10) Protocol Nitroglycerin 0.4 mg 10/01/20 11:36 Nitroglycerin 0.4 Mg Tab.Subl SUBLINGUAL Q5M PRN Chest Pain Ondansetron HCl 4 mg 10/01/20 11:29 Ondansetron Hcl 4 Mg/2 Ml Vial IVPUSH Q8H PRN Nausea and Vomiting Oxycodone HCl 5 mg 10/01/20 11:29 Oxycodone Hcl Immed Release 5 Mg Tablet PO Q4H PRN Pain, Moderate (Pain Scale 4-6 Sodium Chloride 3 ml 10/01/20 16:00 10/01/20 22:20 0.9 % Sodium Chloride Flush 3 Ml Syringe IVFLUSH 3 ml QSHIFT [facility] Administration <Miley Preston PA-C - Last Filed: 10/02/20 07:41> Time Spent With Patient Time: Total time spent is greater than 50% in coordination of care (as documented) at patient's floor/unit and/or counseling patient: <Miley Preston PA-C - Last Filed: 10/02/20 07:41> Time with patient: 15 - 24 minutes <Miley Preston PA-C - Last Filed: 10/02/20 07:41> Quality Stroke Does the patient have a stroke diagnosis?: No <Miley Preston PA-C - Last Filed: 10/02/20 07:41> VTE Prior VTE?: No <Miley Preston PA-C - Last Filed: 10/02/20 07:41> VTE Risk Level:: Surgical - high <Miley Preston PA-C - Last Filed: 10/02/20 07:41> VTE Device Contraindication: N/A - Device Ordered <Miley Preston PA-C - Last Filed: 10/02/20 07:41> VTE Drug Contraindication: N/A - Med Ordered <Miley Preston PA-C - Last Filed: 10/02/20 07:41>
[2020-10-02] MEDS: Metoprolol Tartrate 100 MG TABLET PO (07:59)
[2020-10-02] MEDS: Insulin Lispro 100 UNIT/ML 3 ML VIAL SUBCUT ×2 (07:59→11:47)
[2020-10-02] MEDS: allopurinoL 300 MG TABLET PO (08:00)
[2020-10-02] MEDS: Fluticasone Propionate Nasal 16 GM SPRAY 1 SPRAY NOSTRIL-B (08:04)
--- NOTE | 2020-10-02 08:13 | HO.POSTANES ---
Post Anesthesia Evaluation Post Anesthesia Evaluation Vital Signs: Vital Signs Temp Pulse Resp BP Pulse Ox 10/02/20 07:59 70 114/44 L 10/02/20 07:14 98.4 F 70 18 114/44 L 97 10/02/20 03:39 97.8 F 73 18 94/55 L 100 10/01/20 23:43 97.7 F 72 18 134/57 L 99 10/01/20 22:16 75 112/46 L Anesthesia: General LMA Mental Status: Awake Pain Control: Satisfactory Nausea/Vomiting: None Hydration: Adequate Anesthesia-Related Issues: No Anes. Related Issues
[2020-10-02] MEDS: Insulin Glargine,Hum.rec.anlog 100 UNIT/ML 10 ML VIAL 20 UNIT SUBCUT (08:14)
[2020-10-02] MEDS: Lactated Ringers 1,000 ML 999 ML IV (08:15)
[2020-10-02 11:02] LABS: Glucose, Whole Blood 235 mg/dL (60-115)
--- NOTE | 2020-10-02 11:35 | P.PNIM_ITS ---
Subjective Subjective Date of Service: 10/02/20 Interval History: Minimal postop pain no dyspnea no chest pain no lightheadedness Review of Systems Review of Systems: Yes all other systems are reviewed and are negative Physical Exam Vital Signs: Vital Signs: Last Vital Signs Temp 97.5 F 10/02/20 11:18 Pulse 76 10/02/20 11:18 Resp 16 10/02/20 11:18 BP 104/52 L 10/02/20 09:49 Pulse Ox 96 10/02/20 11:18 Body Mass Index 35.1 Gen: in no acute distress HEENT: sclera anicteric, moist mucus membranes Neck: supple Lungs: clear to auscultation bilaterally Heart: regular rate and rhythm, 3/6 systolic murmur at base Abd: soft, non-tender, non-distended Ext: no edema Skin: warm/well-perfused Neuro: alert and oriented x3, no focal findings Psych: appropriate affect Objective Data Current Medications Generic Name Dose Route Start Last Admin Trade Name Freq PRN Reason Stop Dose Admin Acetaminophen 650 mg 10/01/20 11:29 Acetaminophen 325 Mg Tablet PO Q6H PRN Pain, Mild (Pain Scale 1-3) Al Hydroxide/Mg Hydroxide 30 ml 10/01/20 11:29 Magnesium Hydrox/Alum Hydrox 30 Ml Oral.Susp PO Q4H PRN Heartburn/Nausea Allopurinol 300 mg 10/02/20 09:00 10/02/20 08:00 Allopurinol 300 Mg Tablet PO 300 mg DAILY [facility]ONTRE[facility] Administration Dextrose 25 gm 10/01/20 11:35 Dextrose 50 % 25 Gm/50 Ml Vial IVPUSH Q15M PRN per Hypoglycemia Standing Ord. Protocol Docusate Sodium 100 mg 10/01/20 11:29 Docusate Sodium 100 Mg Capsule PO DAILY PRN Constipation Fluticasone Propionate 1 spray 10/01/20 21:00 10/02/20 08:04 Fluticasone Propionate Nasal 16 Gm [place] NOSTRIL-B 1 spray BID DONTRELL Administration Glucose 15 gm 10/01/20 11:35 Glucose Gel 15 Gm Gel..Gram. PO Q15M PRN per Hypoglycemia Standing Ord. Protocol Heparin Sodium (Porcine) 5,000 unit 10/02/20 11:30 Heparin Sodium,Porcine 5,000 Unit/Ml Vial SUBCUT Q12H [facility] Insulin Glargine 20 unit 10/02/20 09:00 10/02/20 08:14 Insulin Glargine,Hum.Rec.Anlog 100 Unit/Ml 10 Ml Vial SUBCUT 20 unit DAILY [facility] Administration Insulin Human Lispro 0 unit 10/01/20 16:30 10/02/20 07:59 Insulin Lispro 100 Unit/Ml 3 Ml Vial SUBCUT 2 unit QIDACHS [facility] Administration Protocol Isosorbide Mononitrate 60 mg 10/01/20 11:45 10/02/20 08:02 Isosorbide Mononitrate 60 Mg Tab.Er.24h PO Not Given DAILY [facility] Protocol Losartan Potassium 25 mg 10/02/20 09:00 10/02/20 08:02 Losartan Potassium 25 Mg Tablet PO Not Given DAILY [facility] Protocol Metoprolol Tartrate 100 mg 10/01/20 21:00 10/02/20 07:59 Metoprolol Tartrate 100 Mg Tablet PO 100 mg BID [facility] Administration Protocol Morphine Sulfate 4 mg 10/01/20 11:29 Morphine Sulfate 2 Mg/Ml Cartridge IVPUSH Q4H PRN Pain, Severe (Pain Scale 7-10) Protocol Nitroglycerin 0.4 mg 10/01/20 11:36 Nitroglycerin 0.4 Mg Tab.Subl SUBLINGUAL Q5M PRN Chest Pain Ondansetron HCl 4 mg 10/01/20 11:29 Ondansetron Hcl 4 Mg/2 Ml Vial IVPUSH Q8H PRN Nausea and Vomiting Oxycodone HCl 5 mg 10/01/20 11:29 Oxycodone Hcl Immed Release 5 Mg Tablet PO Q4H PRN Pain, Moderate (Pain Scale 4-6 Sodium Chloride 3 ml 10/01/20 16:00 10/02/20 08:00 0.9 % Sodium Chloride Flush 3 Ml Syringe IVFLUSH Not Given QSHIFT [facility] Labs CBC & Chem 7: 10/02/20 05:18 10/02/20 05:18 Labs: Laboratory Results - last 24 hr 10/01/20 10/01/20 10/02/20 16:47 21:22 05:18 MCV 93.4 MCH 30.5 MCHC 32.7 RDW 15.0 Plt Count 156 L MPV 11.7 Immature Gran % (Auto) 0.5 H Neut % (Auto) 81.3 H Lymph % (Auto) 11.8 L [place] % (Auto) 6.2 Eos % (Auto) 0.0 Baso % (Auto) 0.2 Lymph # (Auto) 1.1 L [place] # (Auto) 0.6 Eos # (Auto) 0.0 Baso # (Auto) 0.0 Abs Immat Gran (auto) 0.05 H Absolute Neuts (auto) 7.6 Absolute Nucleated RBC 0.000 Nucleated RBC % (auto) 0.0 Anion Gap Estim Creat Clear Calc Estimated GFR POC Glucose 215 H 340 H Random Glucose Calcium 10/02/20 10/02/20 10/02/20 05:18 07:17 10:53 MCV MCH MCHC RDW Plt Count MPV Immature Gran % (Auto) Neut % (Auto) Lymph % (Auto) [place] % (Auto) Eos % (Auto) Baso % (Auto) Lymph # (Auto) [place] # (Auto) Eos # (Auto) Baso # (Auto) Abs Immat Gran (auto) Absolute Neuts (auto) Absolute Nucleated RBC Nucleated RBC % (auto) Anion Gap 14 Estim Creat Clear Calc 37.7 Estimated GFR 42 POC Glucose 176 H 235 H Random Glucose 195 H D Calcium 8.4 D Assessment and Plan (1) S/P mastectomy: Status: Acute (2) Ductal carcinoma in situ (DCIS) of breast: Status: Acute Assessment and Plan: 79yo F on surgical service POD#1 simple mastectomy for DCIS L breast.? Has hx of R mastectomy for CA.? PMHx hx for AF not on AC due to GI bleed hx, CAD s/p PCI x3, aortic stenosis, CHF, CKD3, DM2, HLD, HTN # CAD # CHF # HTN - continue metoprolol; Imdur + losartan held for soft BP; will give 1L LR - continue statin; resume ASA when cleared by surgery # CKD3 - monitor SCr, avoid nephrotoxins # DM2 - correction-dose lispro, add back glargine 20 units [takes 40 units at home] # VTE ppx - [facility] Quality Stroke Does the patient have a stroke diagnosis?: No VTE Prior VTE?: No VTE Risk Level:: Surgical - high VTE Device Contraindication: N/A - Device Ordered VTE Drug Contraindication: N/A - Med Ordered
[2020-10-02] MEDS: Heparin Sodium,Porcine 5,000 UNIT/ML VIAL 5000 UNIT SUBCUT (11:47)
--- NOTE | 2020-10-02 11:53 | W.MHC.F2F ---
Service Date Service Date: 10/02/20 Encounter Date of encounter: 10/02/20 Reasons for Services Signs and symptoms assessed: Patient underwent mastectomy yesterday for DCIS, currently has a FREDERICK drain in place MD Overseeing Care: Jeremy Garcia Homebound: Leaving the home is medically contraindicated at this time without the asist of a device and/or another person due th the listed conditions above and below. Reason homebound: other (Status post mastectomy 10/01/20, with a FREDERICK drain in place) Certification: Based on the above findings, I certify that this patient is confined to the home and needs intermittent care home care, physical therapy and/or speech therapy, or continues to need occupational therapy. The patient is under my care, and I have initiated the establishment of the plan of care. The patient will be followed by a physician who will periodically review the plan of care.
--- NOTE | 2020-10-02 11:58 | MHC.CM.PN ---
IMM 10/02/20 Female S/P L Mastectomy. She lives w 3 adult children. Family assists with ADLs. Patient can walk short distances. Pt uses WC mostly. DP home with [facility] family will transport. Patient is discharged today.
--- NOTE | 2020-10-02 14:26 | PM.EVENT ---
Event Note Date of Service: 10/02/20 Event Note: She continues to feel well Says she has minimal pain Able to ambulate around the bed Has had stable vital signs Says she is ready to go home FREDERICK drain with much less output today She looks well Discussed with nursing staff and hospitalist service - patient seems ready to be discharged Her daughter Magdalena was in the room and says that she would prefer to bring the patient home today Patient discharged therefore with instructions to see me in the office next week to remove the FREDERICK drain
--- NOTE | 2020-10-02 14:29 | MHC.CM.PN ---
Patient has been medically cleared for dc to home today, with services. A referral has been made to [facility] and they have been notified of today's dc. Last IMM addressed this morning.
--- NOTE | 2020-10-03 12:50 | PM.DS ---
DS: Providers Provider Date of Service: 10/02/20 Date of admission: 10/01/20 11:30 Primary care physician: Radha Damon MD Attending physician on admission: Jeremy Garcia Consults: 10/01/20 11:29 Consult to Hospitalist Routine Consulting Provider: Hospitalist Reason For Exam: medical management Attending physician on discharge: Jeremy Garcia DS: Diagnosis Discharge Diagnosis (1) S/P mastectomy: Status: Acute (2) Ductal carcinoma in situ (DCIS) of breast: Status: Acute DS: Medications Discharge Medications Home Medications: Home Medications Medication Instructions Recorded Confirmed allopurinol 300 mg tablet 300 mg PO DAILY 09/16/20 09/25/20 aspirin 81 mg tablet,delayed 81 mg PO DAILY 09/16/20 09/25/20 release atorvastatin 10 mg tablet 10 mg PO DAILY 09/16/20 09/25/20 blood sugar diagnostic ([place] HoldingTouch #10 ea 09/16/20 09/16/20 Ultra Test) fluticasone propionate 50 1 spray INTRANASAL BID 09/16/20 09/25/20 mcg/actuation nasal spray,suspension furosemide 40 mg tablet 40 mg PO BID 09/16/20 09/25/20 insulin glargine 100 unit/mL (3 40 unit SUBCUT BEDTIME 09/16/20 09/25/20 mL) subcutaneous pen (Lantus Solostar U-100 Insulin) insulin lispro 100 unit/mL 6 - 10 unit SUBCUT TID 09/16/20 09/25/20 subcutaneous pen (Humalog KwikPen (U-100) Insulin) isosorbide mononitrate 60 mg 60 mg PO QAM 09/16/20 09/25/20 tablet,extended release 24 hr lancets ([place] HoldingTouch UltraSoft #100 ea 09/16/20 09/16/20 Lancets) losartan 25 mg tablet 25 mg PO DAILY 09/16/20 09/25/20 metoprolol tartrate 100 mg tablet 100 mg PO BID 09/16/20 09/25/20 nitroglycerin 0.4 mg sublingual 0.4 mg SUBLINGUAL NEEDED PRN 09/16/20 09/25/20 tablet pen needle, diabetic 31 gauge x #50 ea 09/16/20 09/16/20 3/16 (BD Ultra-Fine Mini Pen Needle) pen needle, diabetic 32 gauge x #50 ea 09/16/20 09/16/2032 (BD Ultra-Fine Sylwia Pen Needle) coenzyme Q10 200 mg capsule (Co 200 mg PO DAILY 09/25/20 09/25/20 Q-10) Previous Rx's Medication Instructions Recorded oxycodone-acetaminophen 5 mg-325 1 tab PO Q4-6H PRN #20 tab 10/02/20 mg tablet (Percocet) DS: Summary Hospital Course Hospital Course: BRIEF HPI: The patient is an 79-year-old female who had undergone stereotactic biopsy in [place] recently for left breast calcifications.? The path report had shown a DCIS of the left breast.? She was therefore referred to Dr. Garcia for further treatment.? Options were discussed with her including lumpectomy followed possibly by radiation, versus simple mastectomy.? She had a previous mastectomy on the right breast for breast cancer in the past.? She wanted to proceed with simple mastectomy.?She now presents for the procedure. HOSPITAL COURSE: On 10/01/20 a left simple mastectomy was performed by Dr. Garcia without complication. The patient was transferred to PACU for recovery and then admitted for observation. A hospitalist consult was obtained for management of her medical comorbidities. The patient had an uncomplicated recovery course. On POD #1, she felt well. Her post operative pain was minimal. She was tolerating a solid diet. Her dressing was c/d/i and FREDERICK drain had serosanguineous output. Her BP was soft and she was given a fluid bolus with appropriate rise and her BP remained stable. She was reassessed later that day and she felt ready for discharge to home. She was discharged to home on 10/02/20 in stable condition with VNA services with her FREDERICK drain in place. Status at Discharge Functional status at discharge: independent ambulation Overall status at discharge: patient is progressing back to baseline Time Spent with Patient Time attestation: Total time spent providing and/or coordinating discharge services: Discharge coordination time: Greater than 30 minutes Quality: Stroke Does the patient have a stroke diagnosis?: No Physical Exam Vital Signs: Vital Signs: Last Vital Signs Temp 97.5 F 10/02/20 11:18 Pulse 76 10/02/20 11:18 Resp 16 10/02/20 11:18 BP 138/62 10/02/20 11:18 Pulse Ox 96 10/02/20 11:18 Body Mass Index 35.1 Const: General: comfortable, no acute distress and alert Orientation/consciousness: patient oriented x3 Chest: Other: left mastectomy site- dressing c/d/i, FREDERICK drain with serosanguineous drainage Resp: Effort & Inspection: normal respiratory effort Cardio: Rate: regular rate Skin: General skin exam: no rashes or lesions noted Neuro: General: patient oriented x3 DS: Data Data Completed and Pending Pending studies at discharge: Pending at discharge 10/01/20 11:01 Surgical [PTH] Routine Discharge Plan Discharge Patient Disposition: Home Health Service Discharge Diagnosis: DCIS, s/p left simple mastectomy Referrals: [facility] [Other] - 1 Week Radha Damon MD [Primary Care Provider] - 1 Week Jeremy Garcia MD [Physician] - 2 Weeks Discharge Medications: New oxycodone-acetaminophen [Percocet] 5-325 mg tablet 1 tab PO Q4-6H PRN (Reason: pain) Qty: 20 RF: 0 Continued coenzyme Q10 [Co Q-10] 200 mg Capsule 200 mg PO DAILY RF: 0 (DME) pen needle, diabetic [BD Ultra-Fine Sylwia Pen Needle] 32 gauge x 5/32 needle See Rx Instructions syringe subcut .MEDSUPPLY Qty: 50 RF: 0 allopurinol 300 mg tablet 300 mg PO DAILY RF: 0 fluticasone propionate 50 mcg/actuation spray,suspension 1 spray intranasal BID RF: 0 aspirin 81 mg tablet,delayed release (DR/EC) 81 mg PO DAILY RF: 0 metoprolol tartrate 100 mg tablet 100 mg PO BID RF: 0 losartan 25 mg tablet 25 mg PO DAILY RF: 0 isosorbide mononitrate 60 mg tablet extended release 24 hr 60 mg PO QAM RF: 0 furosemide 40 mg tablet 40 mg PO BID RF: 0 nitroglycerin 0.4 mg tablet, sublingual 0.4 mg sublingual NEEDED PRN (Reason: Chest Pain) RF: 0 atorvastatin 10 mg tablet 10 mg PO DAILY RF: 0 insulin lispro [Humalog KwikPen Insulin] 100 unit/mL insulin pen 6 - 10 unit subcut TID RF: 0 Lantus Solostar U-100 Insulin 100 unit/mL (3 mL) insulin pen 40 unit subcut BEDTIME RF: 0 (DME) pen needle, diabetic [BD Ultra-Fine Mini Pen Needle] 31 gauge x 3/16 needle See Rx Instructions syringe subcut .MEDSUPPLY Qty: 50 RF: 0 (DME) lancets [OneTouch UltraSoft Lancets] Misc See Rx Instructions ea Not Applicable TID Qty: 100 RF: 0 (DME) OneTouch Ultra Test Strip See Rx Instructions ea Not Applicable TID Qty: 10 RF: 0 Discharge Orders: Discharge Order (Routine); Ordered 10/02/20 Ordered By: Jeremy Garcia Diet: diabetic diet Activity on Discharge: No heavy lifting Stand Alone Forms: Patient Portal Discharge page Activity Restrictions/Additional Instructions: If the incision area is tender, you may apply an ice pack for short intervals (No more than 20 minutes on, followed by at least 20 minutes off). Do not apply heat. Do not use creams, lotions, or topical antibiotics unless instructed to do so by your surgeon. These can cause infection or allergic reaction. Ok to shower. Remove dressing and replace as needed. You have steri strips (small white cloth strips) covering your incision- these will fall off ~1 week. FREDERICK drain care- empty q8-12h and as needed. Record amount. No heavy lifting (>10-20lbs)! Call Your Doctor If: -Your temperature exceeds 101.5? F -You experience excessive pain or swelling -You have an unexpected reaction to medication -You have excessive bleeding -You experience continued vomiting/nausea -Your incision begins to separate -Your incision shows signs of infection such as increased redness, swelling, excessive pain, drainage (light blood or clear fluid is normal) or heat Care Plan Goals: Return to baseline health and gradual return to activity following recovery period. FREDERICK drain removal post operatively. Health Concerns: Afib, CAD, diabetes mellitus, DCIS left breast s/p left simple mastectomy Plan of Treatment: Discharge to home with VNA services for FREDERICK drain care, f/u in office, eventual FREDERICK drain removal. Assessment: 79 year old female with multiple medical comorbidities with DCIS left breast s/p left simple mastectomy. She is doing well post operatively and ready for discharge to home with VNA services. Discharge Date/Time: 10/02/20 15:30
== END 2020-10-02 15:30 | disposition home health service (06) | DRG 582 ==
LOC: HO.IMC 12:19
PROVIDERS: Nurse Practitioner; Physician Assistant Surgical; Admitting Provider Surgery; PCP Internal Medicine; Visit Provider Surgery
PROC: 0HBU0ZZ Excision of Left Breast, Open Approach (ICD-10-PCS; CPT 19303; principal; 2020-10-01 09:50)
DX: D05.12 Intraductal carcinoma in situ of left breast (principal); I13.0 Hypertensive heart and chronic kidney disease with heart failure and stage 1 through stage 4 chronic kidney disease, or unspecified chronic kidney disease; I25.10 Atherosclerotic heart disease of native coronary artery without angina pectoris; K21.9 Gastro-esophageal reflux disease without esophagitis; I48.91 Unspecified atrial fibrillation; E11.22 Type 2 diabetes mellitus with diabetic chronic kidney disease; N18.30 Chronic kidney disease, stage 3 unspecified; I50.9 Heart failure, unspecified; Z90.11 Acquired absence of right breast and nipple; Z79.4 Long term (current) use of insulin; Z79.82 Long term (current) use of aspirin; Z79.899 Other long term (current) drug therapy; Z20.822 Contact with and (suspected) exposure to COVID-19
CPT/HCPCS: 19303; 36415; 80048; 82947; 85025; 85027; 87635; 88307; J0131; J0690; J2270; J3010

== ENCOUNTER → 2020-10-16 09:45 | Outpatient (BNVA) | payer MEDICARE, SELFPAY | PROVIDERS: PCP Internal Medicine; Referring Provider Internal Medicine; Visit Provider Surgery | DX: Z90.12 Acquired absence of left breast and nipple (principal); C50.912 Malignant neoplasm of unspecified site of left female breast; R11.0 Nausea; I95.9 Hypotension, unspecified; I10 Essential (primary) hypertension; K59.09 Other constipation; E78.00 Pure hypercholesterolemia, unspecified; E11.9 Type 2 diabetes mellitus without complications; Z88.8 Allergy status to other drugs, medicaments and biological substances; Z79.82 Long term (current) use of aspirin; Z79.4 Long term (current) use of insulin; Z79.891 Long term (current) use of opiate analgesic; Z79.899 Other long term (current) drug therapy | CPT/HCPCS: 99212 ==

== ENCOUNTER → 2020-11-04 09:34 | Outpatient (BNVA) | payer MEDICARE, SELFPAY | PROVIDERS: PCP Internal Medicine; Visit Provider Surgery | DX: D05.12 Intraductal carcinoma in situ of left breast (principal); Z90.11 Acquired absence of right breast and nipple | CPT/HCPCS: 99212 ==

== ENCOUNTER → 2021-05-07 12:39 | Outpatient (BNVA) | payer MEDICARE, SELFPAY | PROVIDERS: PCP Internal Medicine; Visit Provider Surgery | DX: D05.10 Intraductal carcinoma in situ of unspecified breast (principal) | CPT/HCPCS: 99212 ==